=== PATIENT | male | born 1965 | race Caucasian/White ===

== ENCOUNTER 2017-11-10 10:15 | Day surgery (SDC) | payer BC ==
--- NOTE | 2017-08-31 14:44 | HP ---
PREOPERATIVE HISTORY AND PHYSICAL: DATE OF ADMISSION/SURGERY: 09/08/17 DATE OF OFFICE VISIT/ENCOUNTER: 08/21/17 ATTENDING SURGEON: Tiffani Wilson MD * (DICTATED BY MINGO HERNANDEZ) PROCEDURE: Left ring finger Dupuytren's excision. CHIEF COMPLAINT: Left hand Dupuytren's nodule/contracture. HISTORY OF PRESENT ILLNESS: This is a 52-year-old male, who has been followed by Dr. Wilson for Dupuytren's nodules and contracture in the left hand primarily affecting the left ring finger since the fall of 2014. Over time, he has developed a contracture of the ring finger so that he cannot put his hand flat anymore. 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 The contracture of the ring finger is what is bothering him most and he has consented to proceed with surgical intervention at this time in the form of a left ring finger Dupuytren's excision. PAST MEDICAL HISTORY: History of amaurosis fugax. PAST SURGICAL HISTORY: Appendectomy. MEDICATIONS: Aspirin 81 mg daily. ALLERGIES: No known drug allergies. FAMILY MEDICAL HISTORY: Significant for cancer and heart disease. 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 He denies tobacco and recreational drug use. He does drink alcohol on occasion. REVIEW OF SYSTEMS: General: Negative for fevers, chills, or night sweats. No known anesthesia problems. HEENT: Negative for headache, lightheadedness, or syncopal episodes. Integumentary: Negative for abrasions, lesions, or open wounds. Cardiothoracic: Negative for hypertension, chest pain, palpitations, or edema. Pulmonary: Negative for shortness of breath with exertion, chronic cough, or COPD. GI: Negative for nausea, vomiting, diarrhea, constipation, or GERD. : Negative for nocturia, urinary frequency, urgency, history of UTIs, or kidney problems. Musculoskeletal: Positive for current complaint.Negative for chronic or intermittent back pain or history of fractures. Neurologic: Negative for paresthesias, numbness, history of seizure, stroke, or epilepsy. Endocrine: Negative for diabetes and thyroid issues. Hematologic: Negative for easy bruising, anemia, excessive bleeding, or history of DVT. Infectious Disease: Negative for history of MRSA, hepatitis C, or HIV. PHYSICAL EXAMINATION GENERAL: Well-developed, well-nourished, 52-year-old male in no acute distress. VITAL SIGNS: Height 6 feet tall, weight 173 pounds, pulse rate 60, blood pressure 120/72. HEENT: Normocephalic and atraumatic. Pupils are equal, round, and reactive to light and accommodation. Extraocular movements are intact. NECK: Supple. No palpable lymph nodes. Throat is clear. PULMONARY: Lungs are clear to auscultation bilaterally. No wheezes, rales, or rhonchi. CARDIOVASCULAR: Regular rate and rhythm. S1 and S2. No murmurs, rubs, or gallops. No edema. ABDOMEN: Positive bowel sounds, soft, and nontender. EXTREMITIES: On exam of his left hand, he has Dupuytren's nodules in the palm of the hand in line with the middle, ring, and small fingers. He has a very thin cord and an addition nodule in the ring finger and the cord causes about 15 to 20 degrees of flexion contracture at the PIP joint. There is a palpable cord that is quite thin. He has almost full flexion of the fingers, but lacks a little bit of flexion of the PIP joints of the middle and ring fingers. Skin is intact. Neurovascular function is intact. NEUROLOGICAL: Alert and oriented x3. Cranial nerves II through XII are intact. Sensation is intact to light touch. IMPRESSION: Dupuytren's contracture of the ring finger of the left hand. PLAN: The patient is scheduled to undergo a left ring finger Dupuytren's excision with Dr. Wilson on 09/08/17. He will return to the office 10 to 14 days postop for followup and suture removal. A prescription for [place] was e- scribed to the patient's pharmacy for postoperative pain management. MINGO HERNANDEZ [id number]/[facility] #: [id number] MTDMonico
--- NOTE | 2017-11-06 13:24 | HP ---
PREOPERATIVE HISTORY AND PHYSICAL: DATE OF SURGERY/ADMISSION: 11/10/17 [facility] DATE OF OFFICE VISIT/ENCOUNTER: 10/23/17 ATTENDING SURGEON: Tiffani Wilson MD. * (DICTATED BY MINGO HRENANDEZ) PROCEDURE: Left ring finger Dupuytren's excision. CHIEF COMPLAINT: Left hand Dupuytren's nodule/contracture. HISTORY OF PRESENT ILLNESS: This is a 52-year-old male who has been followed by Dr. Wilson for Dupuytren's nodules and contracture in the left hand, primarily affecting the left ring finger since the fall of 2014. Over time he has developed a contracture of the ring finger so that he cannot put his hand flat anymore. 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 A contracture of the ring finger is what is bothering him the most and he has consented to proceed with surgical intervention at this time in the form of a left ring finger Dupuytren's excision. PAST MEDICAL HISTORY: History of amaurosis fugax. PAST SURGICAL HISTORY: Appendectomy. MEDICATIONS: Aspirin 81 mg daily. ALLERGIES: No known drug allergies. FAMILY MEDICAL HISTORY: Cancer, heart disease. 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 He denies tobacco and recreational drug use. He does drink alcohol on occasion. REVIEW OF SYSTEMS: General: Negative for fevers, chills or night sweats. No known anesthesia problems. HEENT: Negative for headache, lightheadedness or syncopal episodes. Integumentary: Negative for abrasions, lesions or open wounds. Cardiothoracic: Negative for hypertension, chest pain, palpitations or edema. Pulmonary: Negative for shortness of breath with exertion, chronic cough , COPD. GI: Negative for nausea, vomiting, diarrhea, constipation, and GERD. : Negative for nocturia, urinary frequency, urgency, history of UTIs, or kidney problems. Musculoskeletal: Positive for current complaint. Negative for chronic or intermittent back pain or history of fractures. Neurological: Negative for paresthesias, numbness, history of seizure, stroke, or epilepsy. Endocrine: Negative for diabetes and thyroid issues. Hematologic: Negative for easy bruising, anemia, excessive bleeding or history of DVT. Infectious Disease: Negative for history of MRSA, hepatitis C or HIV. PHYSICAL EXAMINATION GENERAL: Well-developed, well-nourished 52-year-old male, in no acute distress. VITAL SIGNS: Height 6 feet tall, weight of 174 pounds, pulse rate 78, blood pressure 110/72. HEENT: Normocephalic, atraumatic. Pupils are equal, round, and reactive to light and accommodation. Extraocular movements are intact. Throat is clear. NECK: Supple. No palpable lymph nodes. PULMONARY: Lungs are clear to auscultation bilaterally. No wheezes, rales or rhonchi. CARDIOVASCULAR: Regular rate and rhythm. S1, S2. No murmurs, rubs or gallops. No edema. ABDOMEN: Positive bowel sounds, soft, nontender. EXTREMITIES: On exam of his left hand, he has Dupuytren's nodules on the palm of the hand in line with the middle, ring, and small fingers. There is a very thin cord and an additional node in the ring finger and the cord causes about 15 to 20 degrees of flexion contracture at the PIP joint. The cord is palpable. He has almost full flexion of the fingers, but lacks a little bit of flexion of the PIP joints of the middle and ring fingers. Skin is intact. Neurovascular function is intact. NEUROLOGICAL: Alert and oriented x3. Cranial nerves II through XII are intact. Sensation is intact to light touch. IMPRESSION: Dupuytren's contracture of the ring finger of the left hand. PLAN: The patient is scheduled to undergo a left ring finger Dupuytren's excision with Dr. Wilson on 11/10/17. He will return to the office in 10 to 14 days postop for followup and suture removal. A prescription for [place] was e- scribed to the patient's pharmacy for postoperative pain management. MINGO HERNANDEZ [id number]/[facility] #: [id number] [place]
[~2017-11-10 10:15] MED LIST: Buffered Lidocaine 0.9% SYRIN* 5 ML/SYR SYRINGE INTRADERM ONE
[2017-11-10] MEDS ORDERED: ceFAZolin 2 GM PREMIX (*) 2 GM/50 ML BAG IVPB ONE (10:43)
[2017-11-10] MEDS ORDERED: Lidocaine 1% INJ* 10 MG/ML 30 ML SDV ONE (12:40)
[2017-11-10] MEDS ORDERED: fentaNYL* 50 MCG/ML 2 ML VIAL (100 MCG VIAL) ONE (12:41)
[2017-11-10] MEDS ORDERED: Midazolam* 1 MG/ML 2 ML VIAL (2 MG) ONE (12:41)
[2017-11-10] MEDS ORDERED: Propofol* 10 MG/ML 20 ML BTL IV PUSH ONE (12:43)
[2017-11-10] MEDS ORDERED: Ketorolac INJ* 30 MG/ML 1 ML VIAL IV PRN (12:58)
[2017-11-10 14:07] VITALS: BP 118/73
--- NOTE | 2017-11-10 23:53 | OP ---
CC: Tiffani Wilson MD OPERATIVE REPORT: DATE OF OPERATION: 11/10/17 DATE OF : 63 SURGEON: Tiffani Wilson MD OIL WELL PUMPER: MINGO Fletcher ANESTHESIA: Local MAC. PRE-OP DIAGNOSIS: Dupuytren's contracture of the left ring finger. POST-OP DIAGNOSIS: Dupuytren's contracture of the left ring finger. OPERATIVE PROCEDURE: Removal, Dupuytren's contracture from the left ring finger. ESTIMATED BLOOD LOSS: Zero. TOURNIQUET TIME: About 45 minutes. INDICATION FOR PROCEDURE: Gabriele is a 52-year-old male with a contracture of his PIP joint of the rin g finger, left hand of about 20 degrees. He has a Dupuytren's cord from the PIP joint to the mid asp ect of his palm and a Dupuytren's nodule in the palm. He presents for removal of the Dupuytren's con tracture of the left ring finger. DESCRIPTION OF PROCEDURE: The patient was brought to the operating room, was given a sedation anesth etic and a local infiltration with a total of 10 cc of 1% plain lidocaine. The skin of his left uppe r extremities was prepped and draped in the usual sterile fashion. Hand and forearm were exsanguinat ed and tourniquet elevated to 250 mmHg. Álvaro incisions were made over the ring finger and extended down to the palm overlying the Dupuytren's tissue. This tissue was carefully dissected away from th e skin and away from the neurovascular bundle and traced all the way to the PIP joint of the ring fin ruthie. All of the tissue was removed. There was an additional nodule in the palm and a small separate 1 cm incision was made over this nodule and then the nodule carefully dissected away from the skin. Again, the digital neurovascular bundles were retracted. The wounds were irrigated and the skin edg es reapproximated with 4-0 nylon suture. The wounds were dressed with Xeroform, 4x4, Webril, and Cob an. The patient tolerated the procedure well and was brought to the recovery room in good condition. A splint was placed on the finger. The patient tolerated the procedure well and was brought to the recovery room in good condition. [id number]/[facility] #: [id number]
== END 2017-11-10 14:42 | disposition home or self-care (01) ==
LOC: OREAST 10:15
PROVIDERS: ATTEND Orthopaedic Surgery
DX: M72.0 Palmar fascial fibromatosis [Dupuytren] (principal); Z79.82 Long term (current) use of aspirin
CPT/HCPCS: 88304; J0690; J2250; J2704; J3010

== ENCOUNTER 2019-08-13 07:42 | Day surgery (SDC) | payer BC ==
--- NOTE | 2019-08-07 10:48 | HP ---
PREOPERATIVE HISTORY AND PHYSICAL: DATE OF ADMISSION/SURGERY: 08/13/19 - [facility] DATE OF OFFICE VISIT/ENCOUNTER: 07/25/19 ATTENDING SURGEON: Tiffani Wilson MD.* (DICTATED BY MINGO HERNANDEZ) PROCEDURE: Right elbow distal biceps tendon repair. HISTORY OF PRESENT ILLNESS: This is a 53-year-old male who injured his right anterior elbow and proximal anterior forearm on 06/30/19. He was helping to move a 200-pound piece and unfortunately it fell off of whatever it was on, and as he tried to catch it, he sustained a very forceful extension force to the right elbow with it flexed at about 90 degrees. Subsequently, he had pain in the antecubital fossa and at the proximal forearm on the volar aspect. He had difficulty and pain with pronation and supination. He heard a sudden pop at the time of the injury and then experienced the pain. Since then, he has had persistent discomfort in the area of the distal biceps. He had an MRI, which showed a partial biceps tendon rupture. The patient has elected to proceed with surgical intervention this time to repair the tendon. PAST MEDICAL HISTORY: Amaurosis fugax/TIA approximately 4 years ago. PAST SURGICAL HISTORY: Appendectomy in 1971 and 2 Dupuytren's tissue excision left hand. MEDICATIONS: Aspirin 81 mg daily. ALLERGIES: No known drug allergies. FAMILY MEDICAL HISTORY: Noncontributory. 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 He denies tobacco use and recreational drug use. He drinks alcohol on occasion. REVIEW OF SYSTEMS: Negative for general, cephalic, cardiovascular, respiratory , GI, , other musculoskeletal, integumentary, endocrine, neurologic, and hematologic symptoms. Infectious Disease: Negative for MRSA, hepatitis C, HIV. PHYSICAL EXAMINATION GENERAL: A well-developed, well-nourished 53-year-old male, in no acute distress. VITAL SIGNS: Height 6 feet tall, weight 167 pounds. Pulse rate 76, blood pressure 104/64. HEENT: Normocephalic, atraumatic. Pupils are equal, round, and reactive to light and accommodation. Extraocular movements are intact. Throat is clear. NECK: Supple. No palpable lymph nodes. PULMONARY: Lungs are clear to auscultation bilaterally. No wheezes, rales, or rhonchi. CARDIOVASCULAR: Regular rate and rhythm. S1, S2. No murmurs, rubs, or gallops. No edema. ABDOMEN: Positive bowel sounds, soft, nontender. NEUROLOGIC: Alert and oriented x3. Cranial nerves II through XII are intact. Sensation is intact to light touch. MUSCULOSKELETAL: On exam of his right upper extremity, he has tenderness to palpation over the right distal biceps, but the tendon is palpable. He has increased pain with resisted elbow flexion and forearm supination. He has full range of motion of the elbow. Although the right distal biceps tendon is palpable in the antecubital fossa, it is not as prominent as the left distal biceps. Neurovascular function is intact. DIAGNOSTIC STUDIES/LAB DATA: MRI of the right elbow shows a partial biceps tendon rupture. ASSESSMENT: As above. PLAN: The patient is scheduled to undergo a right elbow distal biceps tendon repair with Dr. Wilson on 08/13/19. He will return to the office 10 days postop for followup and suture removal. A prescription for [place] was e-scribed to the patient's pharmacy for postoperative pain management. He was also given a prescription to pickup a hinged elbow brace prior to surgery and was instructed to bring the brace with him on the day of surgery. MINGO HERNANDEZ [id number]/[facility] #: [id number] MTDD
[~2019-08-13 07:42] MED LIST changes: -Buffered Lidocaine 0.9% SYRIN* 5 ML/SYR SYRINGE INTRADERM ONE; +Buffered Lidocaine 1% SYRIN* 1 ML/SYRINGE INTRADERM ONE; +Lactated Ringers 1000 ML Bag* 1,000 ML IV SCH; +Sodium Citrate/Citric Acid* 15 ML UDC PO ONE
[2019-08-13] MEDS ORDERED: ceFAZolin 2 GM PREMIX in ORs 2 GM/50 ML BAG ONE (07:50)
[2019-08-13] MEDS ORDERED: Sodium Citrate/Citric Acid* 15 ML UDC ONE (07:51)
[2019-08-13] MEDS ORDERED: Bupivacaine 0.5% SDV PF* 30ML VIAL ONE (07:59)
[2019-08-13] MEDS ORDERED: fentaNYL* 50 MCG/ML 2 ML VIAL (100 MCG VIAL) ONE (08:48)
[2019-08-13] MEDS ORDERED: Dexamethasone IV* 4 MG/ML 1 ML (4 MG) ONE (08:49)
[2019-08-13] MEDS ORDERED: Lidocaine 2% PF * 5 ML VIAL ONE (08:49)
[2019-08-13] MEDS ORDERED: Propofol* 10 MG/ML 20 ML BTL ONE (08:49)
[2019-08-13] MEDS ORDERED: Acetaminophen IV 1GM/100ML * 1,000 MG/100 ML VIAL IVPB ONE (09:00)
[2019-08-13] MEDS ORDERED: Ondansetron INJ* 2 MG/ML VIAL IV PRN (09:00)
[2019-08-13] MEDS ORDERED: Naloxone* 0.4 MG/ML 1 ML VIAL IV PRN (09:00)
[2019-08-13] MEDS ORDERED: fentaNYL* 50 MCG/ML 2 ML VIAL (100 MCG VIAL) IV PRN (09:00)
[2019-08-13] MEDS ORDERED: Ketorolac INJ* 30 MG/ML 1 ML VIAL ONE (09:25)
[2019-08-13 11:04] VITALS: BP 119/75
--- NOTE | 2019-08-13 22:52 | OP ---
DATE OF OPERATION: 08/13/19 - [facility] DATE OF : 63 SURGEON: Tiffani Wilson MD. SHEAR SCRAPMAN: MINGO Fletcher. ANESTHESIA: General. PRE-OP DIAGNOSIS: Partial, near full, rupture of the right distal biceps tendon. POST-OP DIAGNOSIS: Partial, near full, rupture of the right distal biceps tendon. OPERATIVE PROCEDURE: Right distal biceps tendon repair. ESTIMATED BLOOD LOSS: Zero. TOURNIQUET TIME: About 40 minutes. INDICATIONS FOR PROCEDURE: Gabriele is a 53-year-old male who suffered injury of his right elbow. MRI shows a near complete tear of his right distal biceps tendon insertion. He presents for repair of the distal biceps tendon. DESCRIPTION OF PROCEDURE: The patient was brought to the operating room, was given a general anesthetic and placed in a supine position on the operating table with a tourniquet around his right upper arm. The skin of his right upper extremity was prepped and draped in the usual sterile fashion. The upper extremity was exsanguinated and the tourniquet elevated to 250 mmHg. A slightly curved incision was made on the proximal aspect of the forearm, just distal to the elbow flexion crease. We dissected bluntly through the subcutaneous tissue, down to the biceps tendon. It was traced all the way down to its insertion on the radial tuberosity and there was just a small amount of the attachment preserved. This was detached and then the tendon was debrided. With the guidewire from the ToggleLoc and ZipLoop set, a bicortical placement was made and then we reamed over the guidewire, 4.5 up to 9 mm, in 1 mm successions. The 4.5 mm reamer was then drilled through the far cortex. A ToggleLoc was placed through both holes and flipped and secured against the far cortex of the radius. A braided non-absorbable #2 suture was then whipstitched through the biceps tendon and caught on to the ToggleLoc and tied off with the ZipLoop. Then we are able to secure the biceps tendon into the 9 mm hole in the radius. The tendon was well seated in the hole. The wound was copiously irrigated with saline. The subcutaneous tissue was closed with 3-0 Polysorb and the skin with skin dudley. The wound was dressed with Xeroform, 4x4, Webril, and an [place] wrap, and the patient was placed in a range of motion brace, locked from 60 to 90 degrees of flexion. The patient tolerated the procedure well and was brought to the recovery room in good condition. [id number]/[facility] #: [id number] [place]
== END 2019-08-13 11:45 | disposition home or self-care (01) ==
LOC: OREAST 07:42
PROVIDERS: ATTEND Orthopaedic Surgery
DX: S46.111A Strain of muscle, fascia and tendon of long head of biceps, right arm, initial encounter (principal); X50.0XXA Overexertion from strenuous movement or load, initial encounter; Y93.89 Activity, other specified; Y92.89 Other specified places as the place of occurrence of the external cause; Z79.82 Long term (current) use of aspirin; Z86.73 Personal history of transient ischemic attack (TIA), and cerebral infarction without residual deficits
CPT/HCPCS: A9270-GY; J0690; J1100; J1885; J2704; J3010; J3490